=== PATIENT | male | born 1980 | race Caucasian/White ===

== ENCOUNTER 2018-06-16 21:05 | Emergency (ER) | payer SELFPAY ==
[~2018-06-16] VITALS: Ht 167.6 cm; Wt 124.2 kg
[~2018-06-16 21:05] MED LIST: ACYCLOVIR400 MG PO; ASPIRIN CHLD81 M1 OR; ATENOLOL50 MG OR; BUPROPION150 M3 PO; CIPRO500 MG OR; FLEXERIL PO; FLONASE NASAL50 MCG; GEMFIBROZIL600 MG OR; HYDROCHLOR12.5 MG/CA PO; L-METHYLFOLATE15 M1 PO; LORTAB 5 OR; MUCINEX600 MG PO; NAPROSYN500 MG PO; ONDANSETRON4 MG PO; OXCARBAZEPINE300 MG PO; PHENERGAN12.5 MG/TA PO; PHENTERMINE OR; POTASSIUM99 MG OR; TRIAM/HCTZ1 CAP OR; ULTRAM50 M1 PO; ZITHROMAX250 MG PO; ZITHROMAX500 MG PO
[2018-06-16] MEDS ORDERED: MAXZIDE-2537.5 MG/TA PO (21:20)
[2018-06-16] MEDS ORDERED: ATIVAN1 MG PO (21:21)
[2018-06-16 21:59] LABS: INFLUENZA A NONE DETECTED (NONE DETECT); INFLUENZA B NONE DETECTED (NONE DETECT)
[2018-06-16] MEDS ORDERED: MOTRIN400 MG PO (22:59)
[2018-06-16 23:09] VITALS: BP 137/80
== END 2018-06-16 23:09 | disposition home or self-care (01) | DRG 563 ==
LOC: ED 21:05
PROVIDERS: Emergency Medicine
DX: M23.92 Unspecified internal derangement of left knee (principal); M23.91 Unspecified internal derangement of right knee; J06.9 Acute upper respiratory infection, unspecified; I10 Essential (primary) hypertension; G89.29 Other chronic pain; M54.9 Dorsalgia, unspecified

== ENCOUNTER 2021-06-17 17:41 | Emergency (ER) | payer OTHER ==
[~2021-06-17] VITALS: Ht 167.6 cm; Wt 136.0 kg
[~2021-06-17 17:41] MED LIST changes: +ATIVAN1 MG PO; +MAXZIDE-2537.5 MG/TA PO; +MOTRIN400 MG PO
[2021-06-17 20:00] VITALS: BP 158/88
[2021-06-17] MEDS ORDERED: NAPROXEN500 MG PO (20:04)
== END 2021-06-17 20:15 | disposition home or self-care (01) | DRG 605 ==
LOC: ED 17:41
DX: S50.11XA Contusion of right forearm, initial encounter (principal); I10 Essential (primary) hypertension; J45.909 Unspecified asthma, uncomplicated; F32.9 Major depressive disorder, single episode, unspecified; W11.XXXA Fall on and from ladder, initial encounter; Y93.H2 Activity, gardening and landscaping

== ENCOUNTER 2023-01-04 11:25 | Emergency (ER) | payer OTHER ==
[2023-01-04] VITALS (10 sets, daily range): BP systolic 134–166; BP diastolic 69–112
[~2023-01-04] VITALS: Ht 167.6 cm; Wt 130.0 kg
[~2023-01-04 11:25] MED LIST changes: +NAPROXEN500 MG PO
[2023-01-04 11:51] LABS: BASO% 0.5 % (0-3); EOS% 0.6 % (0-8); HEMATOCRIT 43.8 % (39.0-50.0); HEMOGLOBIN 14.7 g/dl (14.0-18.0); IMMATURE GRANULOCYTES 0.1 % (0.0-5.0); LYMPH% 19.2 % (15-41); MEAN CELL VOLUME 85.5 fL CALC (80.0-100.0); MEAN CORPUSCULAR HGB 28.7 pG CALC (26.0-32.0); MEAN CORPUSCULAR HGB CONC 33.6 g/dL CAL (32.0-36.0); NEUT# 8.12 thou/uL (1.82-7.42); NEUT% 74.6 % (42-76); RED BLOOD COUNT 5.12 mill/uL (4.70-6.10); RED CELL DISTRI WIDTH 12.6 % (11.5-15.5)
[2023-01-04 12:11] LABS: ALBUMIN 4.2 g/dL (3.2-5.0); ALKALINE PHOSPHATASE 59 u/l (38-126); ANION GAP 11 (6-22 (CALC)); BILIRUBIN, TOTAL 0.3 mg/dL (0.2-1.3); BUN 7 mg/dL (9-20); BUN/CREATININE RATIO 8 (12-20 (CALC)); CARBON DIOXIDE 27 mmol/l (22-30); CHLORIDE 102 mmol/l (95-108); CREATININE 0.9 mg/dL (0.7-1.3); GFR FOR AFR.AMER. > 60 ML/MIN (>=60 (CALC)); GFR OTHER RACES > 60 ML/MIN (>=60 (CALC)); LIPASE 57 u/l (23-300); POTASSIUM 3.7 mmol/l (3.5-5.1); SGOT/AST 24 u/l (17-59); SODIUM 137 mmol/l (137-146); TOTAL PROTEIN 7.4 g/dL (6.3-8.2)
[2023-01-04 12:53] LABS: URINE BILIRUBIN - DIPSTICK NEGATIVE (NEGATIVE); URINE BLOOD DIPSTICK NEGATIVE (NEGATIVE); URINE COLOR YELLOW; URINE GLUCOSE - DIPSTICK NEGATIVE (NEGATIVE); URINE KETONE NEGATIVE (NEGATIVE); URINE LEUK ESTERASE NEGATIVE (NEGATIVE); URINE NITRITE - DIPSTICK NEGATIVE (Negative); URINE PROTEIN - DIPSTICK NEGATIVE (NEG-TRACE); URINE SPECIFIC GRAVITY 1.025; URINE UROBILINOGEN - DIPSTICK 0.2 E.U./dL (0.2)
[2023-01-04] MEDS ORDERED: ZOFRAN4 MG/TAB PO (13:40)
== END 2023-01-04 14:03 | disposition home or self-care (01) | DRG 392 ==
LOC: ED 11:25
PROVIDERS: Family Medicine
DX: R11.2 Nausea with vomiting, unspecified (principal); Z20.822 Contact with and (suspected) exposure to COVID-19; I10 Essential (primary) hypertension; R10.13 Epigastric pain